=== PATIENT | female | born 1935 | race Caucasian/White ===

== ENCOUNTER 2019-07-09 16:02 | Inpatient (IN) | payer MEDICARE ==
[2019-07-09 16:38] VITALS: BP 130/74
[2019-07-09] MEDS ORDERED: Maalox 30 mL Cup PO PRN (16:44)
[2019-07-09] MEDS ORDERED: Magnesium Hydroxide (MOM) 30 mL UDC PO PRN (16:44)
[2019-07-09] MEDS ORDERED: APAP/Oxycodone 5/325mg Tab PO PRN (20:25)
[2019-07-09] MEDS ORDERED: NITROFURANTOIN MACROCRYSTAL 100 MG PO SCH (21:00)
[2019-07-10] MEDS: Pantoprazole 40 mg EC Tab PO SCH ×2 (06:43→08:55)
[2019-07-10 07:18] LABS: CHOLESTEROL 164 mg/dL (<200); HDL -HIGH DENSITY LIPOPROTEIN 36 mg/dL (23-92); TRIGLYCERIDES 77 mg/dL (<150)
[2019-07-10] MEDS: Multivitamin w/ Minerals Tab PO SCH (08:55)
[2019-07-10] MEDS ORDERED: Multivitamin Tab PO SCH (09:00)
--- NOTE | 2019-07-10 15:31 | History & Physical ---
ADMIT DATE: PATIENT IDENTIFICATION: This is an 84-year-old female. CHIEF COMPLAINT: "I am fine." HISTORY SOURCE: Reviewing the chart, talking to the nursing staff. HISTORY OF PRESENT ILLNESS: The patient is an 84-year-old female admitted to Geropsych Unit at [facility] after the patient was presented to Emergency Room with the patient's son, complaining of dysuria and cough. The patient was evaluated by Emergency Room MD and it was noted that the patient had some psychiatric component due to her dementia, needed to be addressed. The patient is now being transferred to [facility]. I am unable to get meaningful history from the patient. PAST MEDICAL HISTORY: Remarkable for: 1. Hypertension. 2. Degenerative joint disease. 3. Dementia. 4. GERD. MEDICATIONS AT THE TIME OF TRANSFER: Lasix, potassium, aspirin, Valium, lisinopril, Colace, milk of magnesia, Namenda, Lopressor, Macrobid, Percocet and Protonix. ALLERGIES: The patient is allergic to ATIVAN and PENICILLIN. SOCIAL HISTORY: She lives with her son. The patient has no history of smoking cigarette, alcohol, or drug use. FAMILY HISTORY: Unknown. REVIEW OF SYSTEMS: The patient denies any headache, blurred vision, double vision, dysphagia, odynophagia, runny nose, stuffy nose, fever, chills, cough, chest pain, shortness of breath, palpitation, dizziness, nausea, vomiting, diarrhea, dysuria, hematuria, hematochezia, melena. No history of any seizure or syncopal episode. PHYSICAL EXAMINATION: GENERAL: The patient is alert, awake, lying in the bed without any acute distress. VITAL SIGNS: Temperature 97.8, pulse 62, respiratory rate 18, blood pressure 143/74. HEENT: Normocephalic, atraumatic. Extraocular muscles are intact. Tongue was pink and coated. Poor dentition noted. No oral lesion, no exudate. No sinus tenderness. External auditory canal and tympanic membranes are well visualized. NECK: Supple, no JVD, no hepatojugular reflex. No lymphadenopathy, thyromegaly or carotid bruit. HEART: Both heart sounds are regular. No S3, no S4, no murmur. CHEST AND LUNGS: Equal in expansion, no expiratory wheezing. ABDOMEN: Soft. No guarding, no rigidity. Liver and spleen not palpable. No palpable mass. EXTREMITIES: No edema, no cyanosis. Peripheral pulses are+1. No calf tenderness noted. NEUROLOGIC: Alert, awake, follows command. No facial asymmetry. Moving upper and lower extremity without any difficulty. Due to her underlying dementia, unable to do detailed neurological examination. SKIN: Hematoma on the left upper extremity noted. AVAILABLE DIAGNOSTIC DATA: Performed in the Emergency Room has been reviewed. Total time reviewing the record is approximately 5 minutes. CLINICAL IMPRESSION: 1. Hypertension. 2. Chronic kidney disease stage 3. 3. Urinary tract infection. 4. Degenerative joint disease. 5. Alzheimer's type dementia. 6. Psychotic disorder. 7. Osteoarthritis. PLAN: The patient is to resume antihypertensive medication along with antibiotic and to hold Lasix and potassium. I do not see any need at this time since the patient is euvolemic and no leg edema. The patient will be continued on aspirin for cerebrovascular accident prophylaxis. Psychotic evaluation and management deferred to psychiatrist. The patient is medically stable to participate in the activity provided by Geropsych Unit. I will continue to follow this patient during the stay in the hospital. JOB# [id number]
--- NOTE | 2019-07-10 23:50 | Psychiatric Evaluation ---
DATE OF SERVICE: 07/10/2019 PSYCHIATRIC INITIAL EVALUATION AND MENTAL STATUS EXAMINATION PATIENT'S AGE: 84 SEX: Female. PHYSICIAN: Dr. Al. CHIEF COMPLAINT: Agitation and confusion. HISTORY OF PRESENT ILLNESS: The patient is an 84-year-old female who was transferred from [facility] because of increased confusion and because of irritability and anxiety. The patient also has been depressed. The patient has not been eating well and has not been having motivation and wants to be left alone. The patient also has been confused. Chart reviewed and the patient interviewed. The patient is unable to answer questions and most of the information is obtained from the chart. The patient was admitted to the geropsychiatric unit for evaluation and should be going to [facility]. She has been anxious and wants to be left alone and depressed. She also has been resisting care at times. She also is feeling hopeless and helpless. PAST PSYCHIATRIC HISTORY: The patient has what seems to be depression and dementia. PAST MEDICAL HISTORY: The patient is dehydrated. Also questionable patient also has a history of fall. SOCIAL HISTORY: The patient will go to [facility]. No known alcohol or street drug use. The patient was living at her home prior to her admission. ALLERGIES: No known allergies. MENTAL STATUS EXAMINATION: The patient appears her stated age. Anxious. Flat affect. In a depressed mood. Thought processes with poverty of speech. The patient did not answer questions regarding hallucinations, delusions, suicide or homicide. The patient is alert, but confused and seems to be disoriented to time, place, person and situation. Impaired immediate, recent and remote memories. Poor insight and judgment. ASSESSMENT: PRIMARY DIAGNOSES: Depressive mood disorder, severe, with psychotic features. SECONDARY DIAGNOSES: Dementia, moderate to severe, with psychotic features. TREATMENT PLAN: We will continue to monitor the patient's behavior and condition closely. Also, we will continue evaluation of the patient for further recommendations. ESTIMATED LENGTH OF STAY: 5-7 days PATIENT STRENGTHS AND WEAKNESSES: The patient's strength is that she seems to be in relatively fair health and that she has placement to go which is [facility]. Weaknesses is her ineffective coping. AFTER DISCHARGE PLAN: Outpatient treatment and followup and the patient will be going to [facility]. JOB# [id number]
[2019-07-11 08:08] LABS: A1C 5.8 % (4.8-5.6)
[2019-07-11] MEDS: Pantoprazole 40 mg EC Tab PO SCH (09:02)
[2019-07-11] MEDS: Multivitamin w/ Minerals Tab PO SCH (09:02)
--- NOTE | 2019-07-11 09:51 | Progress Notes ---
DATE: 07/11/2019 SUBJECTIVE: Chart was reviewed and the patient interviewed. Also discussed the patient's condition with the staff and reviewed records and labs. The patient remains severely depressed and she is still guarded and withdrawn. The patient also is still feeling hopeless and helpless and interacting minimally with others. The patient also is still confused and needs lots of redirections. On the other hand, the patient is easier to redirect her and is also cooperative with treatment. ASSESSMENT: The patient is still depressed and can be high risk of suicide. TREATMENT PLAN: Continue to monitor behavior and condition closely. Also, continue to work on her ineffective coping and follow up closely. JOB# [id number]
[2019-07-12] MEDS: Pantoprazole 40 mg EC Tab PO SCH (08:44)
[2019-07-12] MEDS: Multivitamin w/ Minerals Tab PO SCH (08:44)
--- NOTE | 2019-07-12 23:15 | Progress Notes ---
DATE: 07/12/2019 SUBJECTIVE: Patient in the hospital, very confused, disoriented, not amenable to treatment and very anxious, down, depressed. On [id number], the patient really has no idea why she is in the hospital; she is not quite sure about the year, the month, the day of the week. She states that she has a son that is involved. The patient is not quite sure about her address. Mostly keeps to self, withdrawn, concerns about her current mood symptoms, unclear what her baseline is exactly. ASSESSMENT: The patient is confused, disoriented, ongoing concerns about her mood symptoms. PLAN: We will continue to monitor. The patient coming from an address in [place]. It is unclear what her social circumstances are. We will coordinate care with long term care social worker to confirm a safe disposition once she is more stable. JOB# [id number]
[2019-07-13] MEDS: Pantoprazole 40 mg EC Tab PO SCH (08:32)
[2019-07-13] MEDS: Multivitamin w/ Minerals Tab PO SCH (08:33)
--- NOTE | 2019-07-13 23:53 | Progress Notes ---
DATE: 07/13/2019 An 84-year-old female transferred from [facility] due to increased confusion, irritability, anxiety, apparently not eating well, poor motivation, wanted to be left alone, increased confusion. On [id number], the patient is confused, states that she currently is living in a hospital. The patient does not know the year, the month, the date. She just knows she is in [place], mostly depressed, withdrawn, keeps to self, highly confused, unclear baseline, unclear where she is going to go, just stating that she is waiting for her son to come pick her up. ASSESSMENT: The patient is confused, ongoing disorientation. We will continue to monitor closely, very forgetful. Pending social work specialist evaluation to see about collateral. The patient's family wants her apparently placed at [facility], so currently pending a plan moving forward. [facility]# [id number]
[2019-07-14] MEDS: Multivitamin w/ Minerals Tab PO SCH (09:32)
[2019-07-14] MEDS: Pantoprazole 40 mg EC Tab PO SCH (09:33)
[2019-07-15] MEDS: Pantoprazole 40 mg EC Tab PO SCH (08:29)
[2019-07-15] MEDS: Multivitamin w/ Minerals Tab PO SCH (08:29)
--- NOTE | 2019-07-15 15:55 | Progress Notes ---
DATE: 07/14/2019 SUBJECTIVE: An 84-year-old female, very confused, disoriented, crying earlier today per the staff, wanting to go home. The patient states that she lives with her son, this was not true, the son cannot really handle her at home because she is just too confused, they cannot take care of her. The son wants her placed in a longterm facility in [place]. The patient does not seem to understand this, very forgetful, needing constant redirection and orientation, getting lost on the unit. ASSESSMENT: The patient remains asymptomatic, very confused, labile, crying episodes. PLAN: We will continue to monitor ongoing safety concerns. We are trying to establish a safe disposition. [facility]# [id number]
[2019-07-16] MEDS: Pantoprazole 40 mg EC Tab PO SCH (09:37)
[2019-07-16] MEDS: Multivitamin w/ Minerals Tab PO SCH (09:37)
--- NOTE | 2019-07-17 00:57 | Progress Notes ---
DATE: 07/16/2019 Case was discussed with staff of the patient, reviewed records. The patient continues to be confused, continues to be unpredictable, impulsive, unable to take care of herself and is unable to take care of her. She was in a nursing facility in [place]. The patient still continues to be forgetful, needing constant redirection. No side effects with the medication, no sedation, no nausea. I will continue outpatient group therapy, milieu therapy, adjust the medication as needed. JOB# [id number]
[2019-07-17] MEDS: Multivitamin w/ Minerals Tab PO SCH (09:24)
[2019-07-17] MEDS: Pantoprazole 40 mg EC Tab PO SCH (09:25)
--- NOTE | 2019-07-17 15:34 | Progress Notes ---
DATE: 07/17/[address] Oneal or Dr. Al. Case was discussed with staff of the patient, reviewed records. The patient continues to be unpredictable, impulsive, demented, confused, forgetful, needing redirection. Continues to have poor insight in general about the situation. She is unable to care for herself, needs prompting to help to do her ADLs. Staff has to help her with it. However, she is able to smile, but she has no clue about what is going on. She denies any side effects with the medication. She is on Namenda 10 mg twice a day. I will be adding Aricept to her medication to help improve her cognition. I will continue to work with the patient in group therapy, milieu therapy, adjust the medication as needed. JOB# [id number]
[2019-07-18] MEDS: Multivitamin w/ Minerals Tab PO SCH (09:12)
[2019-07-18] MEDS: Pantoprazole 40 mg EC Tab PO SCH (09:12)
--- NOTE | 2019-07-18 13:59 | Progress Notes ---
DATE: 07/18/2019 Case was discussed with staff of the patient, reviewed records. The patient continues to be confused, demented, forgetful, needing redirection, unpredictable at times. Thought something to do her ADLs. She is sleeping better, eating better. No side effects with the medication, no sedation, no nausea. We will continue outpatient group therapy, milieu therapy, adjust medication as needed. [facility]# [id number]
--- NOTE | 2019-07-18 14:42 | Progress Notes ---
DATE: 07/18/2019 Case was discussed with staff of the patient, reviewed records. The patient continues to be unpredictable, impulsive, needing redirection. Continues to be restless and anxious. Continues to have poor insight He is compliant with the medication with no side effects, no sedation, no nausea, no extrapyramidal symptoms. Continues to be confused, overwhelmed. We will continue outpatient group therapy, milieu therapy, adjust medication as needed. [facility]# [id number] NOAH
[2019-07-19] MEDS: Pantoprazole 40 mg EC Tab PO SCH (09:07)
[2019-07-19] MEDS: Multivitamin w/ Minerals Tab PO SCH (09:07)
--- NOTE | 2019-07-19 22:36 | Progress Notes ---
DATE: 07/19/2019 SUBJECTIVE: The patient is very confused, unpredictable, needing redirection. States she lives in the hospital, has no vertigo, not quite sure about the year, the month. Needing high level of prompting, redirection. Currently gravely, disabled as well. Currently pending a safe discharge. PLAN: The patient will be going to [place]. Currently pending confirmation from professor of social work. Calm, generally cooperative. We will continue to monitor. JOB# [id number]
[2019-07-20] MEDS: Multivitamin w/ Minerals Tab PO SCH (08:38)
[2019-07-20] MEDS: Pantoprazole 40 mg EC Tab PO SCH (08:39)
--- NOTE | 2019-07-20 16:46 | Discharge Summary ---
DATE OF DISCHARGE: 07/20/2019 HISTORY OF PRESENT ILLNESS: An 84-year-old female transferred from [facility] with confusion, irritability, anxiety, depression, not eating, poor motivation. PAST PSYCHIATRIC HISTORY: Dementia. PAST MEDICAL HISTORY: Noted. SOCIAL HISTORY: Noted. MEDICAL: Please see full H and P. HOSPITAL COURSE: After initial assessment, the patient was started on medications, which were adjusted and titrated. Over the course of treatment, her mood improved, affect improved, less anxious, eating better, sleeping well, generally cooperative, remained confused. CONDITION UPON DISCHARGE: Improved, calmer, more cooperative, confused. No SI. No HI. No psychosis. No outbursts. PROVISIONAL DIAGNOSES: Dementia, advanced dementia, dementia with behaviors; mood, unspecified; anxiety, unspecified. PROGNOSIS: PROGNOSIS: The patient follows up with outpatient mental health services and remains compliant with treatment. Prognosis will improve; otherwise, guarded. [facility]# [id number]
== END 2019-07-20 13:30 | DRG 885 ==
LOC: GERO 16:02
PROVIDERS: ADMIT Psychiatry & Neurology Psychiatry; ATTEND Psychiatry & Neurology Psychiatry
DX: F32.3 Major depressive disorder, single episode, severe with psychotic features (principal); N18.3 Chronic kidney disease, stage 3 (moderate); N39.0 Urinary tract infection, site not specified; F02.81 Dementia in other diseases classified elsewhere, unspecified severity, with behavioral disturbance; I12.9 Hypertensive chronic kidney disease with stage 1 through stage 4 chronic kidney disease, or unspecified chronic kidney disease; M19.90 Unspecified osteoarthritis, unspecified site; K21.9 Gastro-esophageal reflux disease without esophagitis; G30.9 Alzheimer's disease, unspecified; F29 Unspecified psychosis not due to a substance or known physiological condition; Z88.0 Allergy status to penicillin; F41.9 Anxiety disorder, unspecified
CPT/HCPCS: 36415-UA; 80061-TC; 83036-90; G0410; Z7610